=== PATIENT | male | born 1995 | race Caucasian/White ===

== ENCOUNTER → 2021-06-18 | Emergency (ER) | payer MEDICAID ==
[~2021-06-18] VITALS: Ht 188 cm; Wt 79.5 kg
[~2021-06-18] MED LIST: HYDR-3965 PO; IBUP-1984 PO; LIDOcaine 1% W/epiNEPHrine 1:200,000 10ml vial IJ ONE; LIDOcaine 1% w/epiNEPHrine 1:200,000 30ml vial IJ ONE; ibuprofen tablet 400 MG TABLET PO ONE
[2021-06-18 18:07] VITALS: BP 144/76
== END | disposition home or self-care (01) ==
LOC: ER 17:55
DX: S63.290A Dislocation of distal interphalangeal joint of right index finger, initial encounter (principal); S63.690A Other sprain of right index finger, initial encounter; M79.644 Pain in right finger(s); Z79.899 Other long term (current) drug therapy; X58.XXXA Exposure to other specified factors, initial encounter; Y93.89 Activity, other specified; Y92.89 Other specified places as the place of occurrence of the external cause; Y99.8 Other external cause status
CPT/HCPCS: 26770; 73140; 99284

== ENCOUNTER 2022-03-22 18:36 | Inpatient (IN) | payer MEDICAID ==
[~2022-03-22] VITALS: Ht 185.4 cm; Wt 85.0 kg
[2022-03-22] MEDS ORDERED: vancomycin inj 2,000 MG in normal saline 500ml IV soln 500 ML IV ONE (19:05)
[2022-03-22] MEDS ORDERED: CefTRIAXone 2gm/D5W 50ml BAG 50 ML IV ONE (19:05)
[2022-03-22] MEDS ORDERED: HYDROcodone/acetaminophen 10/325mg tab PO ONE (19:05)
[2022-03-22 19:39] LABS: BASOPHILS % (AUTO) 0.3 % (0-1); EOSINOPHILS # (AUTO) 0.1 X10'3 (0-0.9); EOSINOPHILS % (AUTO) 0.9 % (0-6); HEMATOCRIT 43.4 % (42.0-52.0); HEMOGLOBIN 14.7 g/dl (14.0-17.9); LYMPHOCYTES # (AUTO) 2.2 X10'3 (1.1-4.8); LYMPHOCYTES % (AUTO) 24.5 % (21-51); MEAN CORPUSCULAR HGB CONC 33.9 g/dL (33.0-36.5); MEAN CORPUSCULAR VOLUME 85.4 FL (78-98); MEAN PLATELET VOLUME 6.6 FL (7.4-10.4); MONOCYTES # (AUTO) 0.8 X10'3 (0-0.9); MONOCYTES % (AUTO) 8.6 % (2-12); NEUTROPHILS % (AUTO) 65.7 % (42-75); PLATELET COUNT 198 X10'3 (140-440); RED BLOOD COUNT 5.08 X10'6 (4.70-6.10); RED CELL DISTRIBUTION WIDTH 13.8 % (11.5-14.5); WHITE BLOOD COUNT 9.1 X10'3 (4.5-11.0)
[2022-03-22 19:56] LABS: ALANINE AMINOTRANSFERASE 29 U/L (12-78); ALBUMIN 4.4 G/DL (3.4-5.0); ALBUMIN/GLOBULIN RATIO 1.3 (1.1-1.5); ALKALINE PHOSPHATASE 101 IU/L (46-116); ANION GAP 7 (8-16); ASPARTATE AMINO TRANSFERASE 15 U/L (10-37); BILIRUBIN,TOTAL 0.4 MG/DL (0.1-1.0); BLOOD UREA NITROGEN 19 MG/DL (7-18); BUN/CREATININE RATIO 20.4 (5.4-32.0); CALCIUM 9.1 MG/DL (8.5-10.1); CHLORIDE 103 MMOL/L (99-107); CREATININE 0.93 MG/DL (0.60-1.10); GLUCOSE 81 MG/DL (70-104); POTASSIUM 3.9 MMOL/L (3.5-5.1); SODIUM 141 MMOL/L (135-145); TOTAL CARBON DIOXIDE 30.6 MMOL/L (24-32); TOTAL PROTEIN 7.7 G/DL (6.4-8.2); eGFR > 90 ML/MIN
[2022-03-22] MEDS ORDERED: morphine 4 MG/ML inj SYRINge IV ONE (21:25)
[2022-03-22] MEDS ORDERED: morphine 2 MG/ML inj. syringe IV PRN (21:50)
[2022-03-22] MEDS ORDERED: acetaminophen 325mg tablet PO PRN (21:50)
[2022-03-22] MEDS ORDERED: ondansetron/PF 4mg/2ml inj IV PRN (21:50)
[2022-03-22] MEDS: normal saline 1000ml 1,000 ML IV SCH (22:18)
[2022-03-22] MEDS: morphine 2 MG/ML inj. syringe IV PRN (23:08)
[2022-03-22 23:30] VITALS: BP 130/83
[2022-03-23] MEDS: morphine 2 MG/ML inj. syringe IV PRN ×6 (01:28→13:49)
[2022-03-23 06:00] VITALS: BP 127/61
--- NOTE | 2022-03-23 06:52 | NUR ---
Patient in room ORTHO 4011. I have received report from SUDHA Alfonso and had the opportunity to ask questions and assume patient care.
[2022-03-23] MEDS: normal saline 1000ml 1,000 ML IV SCH ×2 (07:02→22:13)
[2022-03-23] MEDS: vancomycin/NS 1 GM ADD-VANTAGE 250 ML IV SCH ×2 (07:27→15:59)
[2022-03-23 10:00] VITALS: BP 114/67
[2022-03-23] MEDS ORDERED: HYDROcodone/acetaminophen 5mg/325mg tablet PO PRN (15:35)
[2022-03-23] MEDS: HYDROcodone/acetaminophen 5mg/325mg tablet PO PRN ×2 (15:58→20:09)
[2022-03-23] MEDS ORDERED: NO HOME MEDS (16:28)
[2022-03-23 18:00] VITALS: BP 114/62
--- NOTE | 2022-03-23 18:25 | NUR ---
Problems reprioritized. Patient report given, questions answered & plan of care reviewed with SUDHA Muse.
--- NOTE | 2022-03-23 18:52 | NUR ---
LAN ENGINEER documentation: I have reviewed and agree with all interventions, assessments performed and documented by Calli.
[2022-03-23] MEDS: CefTRIAXone/D5W-Rocephin 1gm 50 ML IV SCH (20:10)
[2022-03-23 22:00] VITALS: BP 119/65
[2022-03-24] MEDS: vancomycin/NS 1 GM ADD-VANTAGE 250 ML IV SCH ×2 (00:02→08:37)
[2022-03-24] MEDS: HYDROcodone/acetaminophen 5mg/325mg tablet PO PRN ×5 (00:03→17:39)
[2022-03-24] MEDS: morphine 2 MG/ML inj. syringe IV PRN ×2 (02:22→22:12)
[2022-03-24] MEDS: normal saline 1000ml 1,000 ML IV SCH ×3 (03:50→23:50)
[2022-03-24 05:00] VITALS: BP 115/64
--- NOTE | 2022-03-24 06:41 | NUR ---
Problems reprioritized. Patient report given, questions answered & plan of care reviewed with Bianca HALEY.
--- NOTE | 2022-03-24 07:05 | NUR ---
Patient in room ORTHO 4011. I have received report from Almaz HALEY and had the opportunity to ask questions and assume patient care.
[2022-03-24] MEDS ORDERED: VANCOMYCIN LEVEL IV ONE (07:30)
[2022-03-24 10:00] VITALS: BP 142/61
[2022-03-24 18:00] VITALS: BP 133/70
--- NOTE | 2022-03-24 18:20 | NUR ---
Patient in room ORTHO 4010. I have received report from Bianca HALEY and had the opportunity to ask questions and assume patient care. Addendum: 03/24/22 at 1846 by Silvina Lopez RN Amended: Links added.
--- NOTE | 2022-03-24 18:41 | NUR ---
patient c/o pain 02/06, medicated q4hrly with [place]. page made to DR Garcia as patient is nearing his tylenol max dose. Finger remains painful and swollen . Report given to Silvina HALEY
[2022-03-24] MEDS: CefTRIAXone/D5W-Rocephin 1gm 50 ML IV SCH (20:27)
[2022-03-24 22:00] VITALS: BP 133/81
[2022-03-25] MEDS: HYDROcodone/acetaminophen 5mg/325mg tablet PO PRN ×3 (00:32→12:42)
[2022-03-25 06:00] VITALS: BP 118/60
--- NOTE | 2022-03-25 06:40 | NUR ---
Problems reprioritized. Patient report given, questions answered & plan of care reviewed with Ninfa HALEY. Addendum: 03/25/22 at 0721 by Silvina Lopez RN Amended: Links added.
[2022-03-25] MEDS: morphine 2 MG/ML inj. syringe IV PRN (07:37)
[2022-03-25] MEDS: normal saline 1000ml 1,000 ML IV SCH (09:50)
[2022-03-25 10:00] VITALS: BP 131/67
[2022-03-25 10:46] LABS: BASOPHILS % (AUTO) 0.4 % (0-1); EOSINOPHILS # (AUTO) 0.1 X10'3 (0-0.9); EOSINOPHILS % (AUTO) 1.7 % (0-6); HEMATOCRIT 43.8 % (42.0-52.0); LYMPHOCYTES # (AUTO) 1.6 X10'3 (1.1-4.8); LYMPHOCYTES % (AUTO) 30.4 % (21-51); MEAN CORPUSCULAR HEMOGLOBIN 29.1 PG (27.0-31.0); MEAN CORPUSCULAR HGB CONC 34.2 g/dL (33.0-36.5); MEAN CORPUSCULAR VOLUME 85.1 FL (78-98); MEAN PLATELET VOLUME 6.5 FL (7.4-10.4); MONOCYTES # (AUTO) 0.4 X10'3 (0-0.9); MONOCYTES % (AUTO) 7.9 % (2-12); NEUTROPHILS # (AUTO) 3.1 X10'3 (1.8-7.7); NEUTROPHILS % (AUTO) 59.6 % (42-75); PLATELET COUNT 187 X10'3 (140-440); RED BLOOD COUNT 5.15 X10'6 (4.70-6.10); RED CELL DISTRIBUTION WIDTH 13.8 % (11.5-14.5); WHITE BLOOD COUNT 5.2 X10'3 (4.5-11.0)
--- NOTE | 2022-03-25 11:38 | NUR ---
Dr. Seth rounded on pt. States he feels comfortable with pt going home on antibiotics. Pt. will need IV Vanco HH and PICC. PICC consent signed. CM called. Left voicemail. Paging PICC RN.
--- NOTE | 2022-03-25 11:41 | NUR ---
PICC RN paged.
--- NOTE | 2022-03-25 13:47 | NUR ---
PAGER ID: [phone] MESSAGE: Ed Arnold [id number] Needs Vanco prescription written on yellow paper by you before ordering from [facility]. Ninfa [id number]
[2022-03-25] MEDS ORDERED: VANCOMYCIN LEVEL IV ONE (15:30)
[2022-03-25] MEDS ORDERED: OMEP20CA15 PO (15:31)
[2022-03-25] MEDS ORDERED: IBUP-1985 PO (15:31)
[2022-03-25] MEDS ORDERED: ACET-1008 PO (15:31)
--- NOTE | 2022-03-25 15:58 | NUR ---
Returned from lunch break and was told that pt. needed to DC by 1600 and get to [place] by 1630. This most likely will not happen r/t pt. may or may not have a ride. Pt. also concerned Tylenol and Ibu not enough to control his pain but he will discharge and go to ER over the weekend if this becomes an issue.
--- NOTE | 2022-03-25 16:15 | NUR ---
Called [facility] to verify pt. would receive 1600 dose of humphrey Almanzar, LIZ. This will happen per [facility] tech.
--- NOTE | 2022-03-25 16:15 | NUR ---
DISCHARGE NOTE: Reviewed discharge paperwork with pt. He is aware to f/u with [facility] on Monday. Pt. knows he needs to be at [facility] by 1630 to get medication education on Vanco IV administration. Discharge with [facility] PICC. Pt. has used [facility] appropriately while in hospital for sensitive finger pain however hospitalist discharged with IBU and Tylenol. Pt. concerned about this, especially for sleep. He is aware he will not be able to reach Dr. Seth over the weekend and unfortunately there is not enough time to page the hospitalist to discuss pain management orders. Suggested the pt. come into the ER if his pain gets unbearable and he has already tried alternating what was prescribed currently. Pt. agreed this is a good idea. His ride here on time and he will go straight to [facility]. PIV removed, cannula intact, no s/sx bleeding. Pt. left with his belongings.
[2022-03-25] MEDS ORDERED: HYDR-3972 PO ×3 (17:55→18:22)
== END 2022-03-25 16:20 | disposition home or self-care (01) | DRG 721 ==
LOC: ER 18:36 → ED HOLD 21:49 → ORTHO 4S 23:20
PROVIDERS: ADMIT Internal Medicine; ATTEND Internal Medicine
PROC: 05HY33Z Insertion of Infusion Device into Upper Vein, Percutaneous Approach (ICD-10-PCS; principal; 2022-03-25)
DX: T81.40XA Infection following a procedure, unspecified, initial encounter (principal); L03.011 Cellulitis of right finger; M65.841 Other synovitis and tenosynovitis, right hand; Z20.822 Contact with and (suspected) exposure to COVID-19; Y83.8 Other surgical procedures as the cause of abnormal reaction of the patient, or of later complication, without mention of misadventure at the time of the procedure; Z28.310 Unvaccinated for COVID-19; Y92.89 Other specified places as the place of occurrence of the external cause
CPT/HCPCS: 36415; 36569; 73200; 80053; 80202; 83605; 84145; 85025; 87040; 87081; 87635; 99285; C1751; G0378; J0696; J2270; J2405; J3370; J7030; J7040

== ENCOUNTER 2022-03-25 17:32 | Emergency (ER) | payer MEDICAID ==
[~2022-03-25] VITALS: Ht 185.4 cm; Wt 86.0 kg
[~2022-03-25 17:32] MED LIST changes: +ACET-1008 PO; -HYDR-3965 PO; -IBUP-1984 PO; +IBUP-1985 PO; -LIDOcaine 1% W/epiNEPHrine 1:200,000 10ml vial IJ ONE; -LIDOcaine 1% w/epiNEPHrine 1:200,000 30ml vial IJ ONE; +NO HOME MEDS; +OMEP20CA15 PO; -ibuprofen tablet 400 MG TABLET PO ONE
[2022-03-25 17:42] VITALS: BP 15/94
[2022-03-25] MEDS ORDERED: HYDR-3972 PO ×3 (17:55→18:22)
== END 2022-03-25 18:03 | disposition home or self-care (01) ==
LOC: ER 17:33
DX: M65.841 Other synovitis and tenosynovitis, right hand (principal)
CPT/HCPCS: 99283